=== PATIENT | female | born 1990 | race Caucasian/White ===

== ENCOUNTER 2018-12-14 17:20 | Emergency (ER) | payer OTHER ==
[~2018-12-14] VITALS: Ht 160 cm; Wt 50.8 kg
[2018-12-14 17:32] VITALS: Ht 160 cm; Wt 50.8 kg
[2018-12-14 19:16] VITALS: BP 129/85
== END 2018-12-14 19:16 | disposition home or self-care (01) ==
LOC: EDSEX 17:20 → ED 17:20
DX: N93.9 Abnormal uterine and vaginal bleeding, unspecified (principal)